=== PATIENT | female | born 1950 | race American Indian/Alaskan Native ===

== ENCOUNTER 2017-03-15 12:27 | Outpatient (CLI) | payer MEDICARE ==
[2017-03-15 13:04] LABS: Blood Urea Nitrogen 16 mg/dL (7-17)
--- NOTE | 2017-03-15 15:37 | Magnetic Resonance Report ---
MRI of the abdomen with and without contrast. History: Hepatitis C. Procedure: A multiplanar multisequence study was performed with and without contrast and compared to a previous similar study performed on June 01, 2016. Findings: The liver size is normal loss of normal to decreased, similar to the previous study. There is minimal subtle nodularity of the contour of the liver as noted before. No focal lesions are seen within the liver on the precontrast study. The spleen and pancreas are normal. The pancreatic duct is normal in caliber. The portal vein is somewhat prominent but otherwise unremarkable. Multiple gallstones are seen. The kidneys are normal in size and configuration. There is no hydronephrosis or evidence of renal mass. No abnormal fluid collections are seen. The postcontrast study demonstrates such severe motion artifact that it is essentially nondiagnostic. The previous study in 2015 was of diagnostic quality. Impression: The study is significantly limited technically due to to essentially nondiagnostic postcontrast study related to severe motion artifact. However on the precontrast study, there is no evidence of hepatic mass or other interval change. The liver remains slightly small with minimal nodularity of the contour, possibly due to cirrhosis. 2. Cholelithiasis.
== END 2017-03-15 12:28 | disposition home or self-care (01) ==
LOC: MRI 12:27
PROVIDERS: ATTEND Internal Medicine Gastroenterology
DX: K80.20 Calculus of gallbladder without cholecystitis without obstruction (principal); B19.20 Unspecified viral hepatitis C without hepatic coma; K74.60 Unspecified cirrhosis of liver; R97.8 Other abnormal tumor markers
CPT/HCPCS: 36415; 74183; 82565; 84520; A9577

== ENCOUNTER 2017-12-05 09:00 | Outpatient (CLI) | payer MEDICARE ==
[2017-12-05 10:02] LABS: Blood Urea Nitrogen 20 mg/dL (7-17)
--- NOTE | 2017-12-06 08:30 | Magnetic Resonance Report ---
MRI ABDOMEN WITHOUT AND WITH CONTRAST : 12/05/17 10:00:00 CLINICAL: Hepatitis C. COMPARISON :08/01/16 TECHNIQUE: Axial T1 in phase and opposed phase, coronal and axial T2 and axial T2 fat sat sequences plus multiphase postcontrast T1 fat sat sequences on a 1.5 Jodie magnet. 15.0 cc of Multihance was injected intravenously for the contrast portion of the exam and consent was obtained prior to the administration of the contrast. FINDINGS: Stable small liver with the right lobe measuring 13 cm in length. Stable surface nodularity of the anterior left lobe. No liver mass. Stable enlargement of the main portal vein and branch portal veins. The umbilical vein is patent and portosystemic collaterals are identified in the epigastric region. Normal hepatic veins and bile ducts. Cholelithiasis with several small calculi layering dependently within the gallbladder. No gallbladder wall thickening or pericholecystic fluid. No ascites. The spleen is mildly enlarged and measures 11.5 cm maximum dimension. This measurement is unchanged. The pancreas is small and otherwise normal. Normal splenic vein and superior mesenteric vein. No splenic varices or gastric varices are identified. Normal adrenal glands and kidneys. The renal collecting systems and ureters are nondilated. Imaged portions of small bowel and colon are normal. IMPRESSION: 1. Cirrhosis of the liver with stable liver size and nodularity. 2. Mild portal hypertension with large portal veins, patent umbilical vein and mild splenomegaly. However, no gastric or splenic varices and no ascites. 3. Cholelithiasis but no signs of acute cholecystitis.
== END 2017-12-05 09:01 | disposition home or self-care (01) ==
LOC: MRI 09:00
PROVIDERS: ATTEND Internal Medicine Gastroenterology
DX: K80.20 Calculus of gallbladder without cholecystitis without obstruction (principal); B19.20 Unspecified viral hepatitis C without hepatic coma; K74.60 Unspecified cirrhosis of liver; R97.8 Other abnormal tumor markers; R16.1 Splenomegaly, not elsewhere classified; K76.6 Portal hypertension
CPT/HCPCS: 36415; 74183; 82565; 84520; A9577

== ENCOUNTER 2017-12-17 11:39 | Emergency (ER) | payer MEDICARE ==
[2017-12-17 12:30] LABS: Basophils % (Auto) 0.3 % (0.0-1.8); Eosinophils # (Auto) 0.1 K/mm3 (0.0-0.4); Eosinophils % (Auto) 1.4 % (0.0-4.3); Hematocrit 42.7 % (30.3-42.9); Hemoglobin 14.9 gm/dl (10.1-14.3); Lymphocytes # (Auto) 1.3 K/mm3 (1.2-5.4); Lymphocytes % (Auto) 13.9 % (13.4-35.0); Mean Corpuscular HGB Conc 35 % (30-34); Mean Corpuscular Hemoglobin 30 pg (28-32); Mean Corpuscular Volume 87 fl (79-97); Monocytes # (Auto) 0.7 K/mm3 (0.0-0.8); Monocytes % (Auto) 7.5 % (0.0-7.3); Red Cell Distribution Width 15.3 % (13.2-15.2)
[2017-12-17 12:31] LABS: Platelet Count 97 K/mm3 (140-440)
[2017-12-17 12:52] LABS: Alanine Aminotransferase 15 units/L (7-56); Albumin 4.3 g/dL (3.9-5); BUN/Creatinine Ratio 13; Blood Urea Nitrogen 12 mg/dL (7-17); Calcium 9.5 mg/dL (8.4-10.2); Hemolysis Index 21
[2017-12-17 15:43] LABS: Bilirubin,Urine NEG (Negative); Blood,Urine MOD (Negative); Nitrite,Urine NEG (Negative); Protein,Urine <15 mg/dL mg/dL (Negative); Urobilinogen,Urine < 2.0 mg/dL (<2.0)
[2017-12-17 16:09] LABS: Color,Urine Straw (Yellow); RBC,Urine < 1.0 /HPF (0.0-6.0)
--- NOTE | 2017-12-17 16:59 | Emergency Department Report ---
HPI - General Chief Complaint: Abdominal Pain Time Seen by Provider: 12/17/17 16:52 - HPI HPI: c/o lower abd pain and LUTS (dysuria, frequency, urgency) that started this morning. At the ER she went to the bathroom to urinate and she urinated a little but the pain is gone. Denies nausea, vomiting, diarrhea, fever, or chills. h/o UTI but no calculi. h/o HTN and PCP just started her on a water pill. ED Past Medical Hx - Past Medical History Previous Medical History?: Yes Hx Hypertension: Yes - Surgical History Past Surgical History?: Yes Additional Surgical History: right knee surgery - Social History Smoking Status: Never Smoker Substance Use Type: Alcohol - Medications Home Medications: Home Medications Medication Instructions Recorded Confirmed Last Taken Type Epclusa 400 mg-100 mg Tablet 100 mg PO DAILY 09/19/16 09/19/16 09/18/16 History amLODIPine [Norvasc] 2.5 mg PO QDAY #30 tablet 09/20/16 Unknown Rx methylPREDNISolone [Medrol Dose 1 dose PO DAILY #1 pack 09/20/16 Unknown Rx Bernardo] Triamcinolone Acetonide 60 ml TP BID #90 mg 10/19/16 Unknown Rx [Triamcinolone 0.1% LOTION] methylPREDNISolone [Medrol] 4 mg PO QAM #21 tab.ds.pk 10/19/16 Unknown Rx Ciprofloxacin HCl [Cipro] 500 mg PO BID #20 tablet 12/17/17 Unknown Rx ED Review of Systems ROS: Stated complaint: URINE RETENTION Other details as noted in HPI Constitutional: denies: chills, fever Eyes: denies: eye pain, eye discharge, vision change ENT: denies: ear pain, throat pain Respiratory: denies: cough, shortness of breath, wheezing Cardiovascular: denies: chest pain, palpitations Endocrine: no symptoms reported Gastrointestinal: denies: abdominal pain, nausea, diarrhea Genitourinary: as per HPI, urgency, dysuria Musculoskeletal: denies: back pain, joint swelling, arthralgia Skin: denies: rash, lesions Neurological: denies: headache, weakness, paresthesias Psychiatric: denies: anxiety, depression Hematological/Lymphatic: denies: easy bleeding, easy bruising Physical Exam - Physical Exam Vital Signs: Vital Signs 12/17/17 11:42 Temperature 97.8 F Pulse Rate 87 Respiratory 18 Rate Blood Pressure 160/68 O2 Sat by Pulse 96 Oximetry Physical Exam: General: no acute distress. Abdominal: flat, nontender, nondistended, normal BS Chest: good air entry B/L Heart: normal S1/S2, no murmer ED Course Vital Signs 12/17/17 11:42 Temperature 97.8 F Pulse Rate 87 Respiratory 18 Rate Blood Pressure 160/68 O2 Sat by Pulse 96 Oximetry - Reevaluation(s) Reevaluation #1: 12/17/17 17:43 Went to the bathroom and urinated but dysuria. No abdominal pain. gave her 40 meq KCL PO once. ED Medical Decision Making - Lab Data Result diagrams: 12/17/17 12:15 12/17/17 12:15 Critical care attestation.: If time is entered above; I have spent that time in minutes in the direct care of this critically ill patient, excluding procedure time. ED Disposition Clinical Impression: Hypokalemia UTI (urinary tract infection) Qualifiers: Urinary tract infection type: site unspecified Hematuria presence: without hematuria Qualified Code(s): N39.0 - Urinary tract infection, site not specified Disposition: DC-01 TO HOME OR SELFCARE Is pt being admited?: No Does the pt Need Aspirin: No Condition: Good Instructions: Abdominal Pain (ED) Additional Instructions: UTI Prescriptions: Ciprofloxacin HCl [Cipro] 500 mg PO BID #20 tablet Referrals: ALEXANDREA LECHUGA MD [Primary Care Provider] - 3-5 Days Time of Disposition: 17:45
[2017-12-17] MEDS ORDERED: K-DUR PO ONE (17:21)
[2017-12-17 17:54] VITALS: BP 166/74
== END 2017-12-17 17:58 | disposition home or self-care (01) ==
LOC: ED 11:39
DX: N39.0 Urinary tract infection, site not specified (principal); E87.6 Hypokalemia; I10 Essential (primary) hypertension
CPT/HCPCS: 36415; 80053; 81001; 85025; 99283

== ENCOUNTER 2018-01-27 19:24 | Emergency (ER) | payer MEDICARE ==
[2018-01-27] MEDS ORDERED: ASPIRIN PO ONE (19:48)
[2018-01-27 20:27] LABS: Basophils % (Auto) 0.4 % (0.0-1.8); Eosinophils # (Auto) 0.1 K/mm3 (0.0-0.4); Eosinophils % (Auto) 0.9 % (0.0-4.3); Hematocrit 42.2 % (30.3-42.9); Hemoglobin 14.7 gm/dl (10.1-14.3); Lymphocytes # (Auto) 1.5 K/mm3 (1.2-5.4); Lymphocytes % (Auto) 18.5 % (13.4-35.0); Mean Corpuscular HGB Conc 35 % (30-34); Mean Corpuscular Hemoglobin 31 pg (28-32); Mean Corpuscular Volume 89 fl (79-97); Monocytes # (Auto) 0.5 K/mm3 (0.0-0.8); Monocytes % (Auto) 6.4 % (0.0-7.3); Red Blood Count 4.76 M/mm3 (3.65-5.03); Red Cell Distribution Width 14.2 % (13.2-15.2)
--- NOTE | 2018-01-27 20:30 | Cat Scan Report ---
FINAL REPORT EXAM: CT HEAD/BRAIN WO CON HISTORY: headache TECHNIQUE: Axial noncontrast CT images of the brain were performed. Total exam DLP 805.42 mGy-cm Comparison: None FINDINGS: There is mild cortical atrophy. There is normal king-white differentiation without midline shift or mass effect. There is left basal ganglia punctate calcification. There are no intraparenchymal blood products or acute extra-axial fluid collections. Ventricles and cisterns have normal size and configuration. Orbital cones and apices are within normal limits. 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 Sphenoid sinus mucous retention cyst. IMPRESSION: No acute intracranial abnormality identified. Specifically, no transcortical infarct, mass, or blood products. If symptoms persist, recommend MRI brain with diffusion-weighted imaging. Sphenoid sinus mucous retention cyst. 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
[2018-01-27 20:36] LABS: Platelet Count 86 K/mm3 (140-440)
[2018-01-27 20:48] LABS: BUN/Creatinine Ratio 14; Blood Urea Nitrogen 15 mg/dL (7-17); Calcium 9.1 mg/dL (8.4-10.2); Hemolysis Index 9
[2018-01-28 05:01] VITALS: BP 170/78
== END 2018-01-28 06:11 | disposition left against medical advice (07) ==
LOC: ED 19:24
DX: R07.9 Chest pain, unspecified (principal); R42 Dizziness and giddiness; R51 Headache; Z53.21 Procedure and treatment not carried out due to patient leaving prior to being seen by health care provider
CPT/HCPCS: 36415; 70450; 80048; 84484; 85025; 93005; 93010

== ENCOUNTER 2020-10-19 09:30 | Outpatient (CLI) | payer MEDICARE ==
--- NOTE | 2020-10-19 11:29 | Magnetic Resonance Report ---
MR brain wo con INDICATION / CLINICAL INFORMATION: 70 years Female; H81.09 R42 H83.2XP. TECHNIQUE: Multiplanar, multisequence MR images of the brain were obtained. COMPARISON: None available. FINDINGS: BRAIN / INTRACRANIAL CONTENTS: This mild cerebral atrophy. The ventricular system is correspondingly appropriate in size and configuration. No extra-axial fluid collections or significant mass effect is identified. There are subtle periventricular white matter changes indicative of mild age-appropriate microvascular angiopathy. The diffusion imaging reveals no evidence of acute infarction. CRANIOCERVICAL JUNCTION: No significant abnormality. 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 Otherwise, the vascular structures grossly demonstrate appropriate signal voids. ORBITS: No significant abnormality. SINUSES / MASTOIDS: There is a 1.5 cm retention cyst along the posterior right sphenoid sinus with sl ight adjacent mucosal thickening. ADDITIONAL FINDINGS: None. IMPRESSION: 1. The MRI of the brain is unremarkable for age without evidence of recent infarction or acute intrac ranial process. 2. There is a 1.2 cm retention cyst along the posterior right sphenoid sinus. Signer Name: Paresh Darling MD Signed: 10/19/2020 11:25 AM Workstation Name: [id number]
== END 2020-10-19 09:31 | disposition home or self-care (01) ==
LOC: MRI 09:30
PROVIDERS: ATTEND Otolaryngology
DX: J34.1 Cyst and mucocele of nose and nasal sinus (principal); G31.9 Degenerative disease of nervous system, unspecified; I67.9 Cerebrovascular disease, unspecified; H90.3 Sensorineural hearing loss, bilateral; H81.09 Meniere's disease, unspecified ear
CPT/HCPCS: 70551

== ENCOUNTER 2021-12-06 14:41 | Outpatient (CLI) | payer MEDICARE ==
--- NOTE | 2021-12-06 16:29 | XRay Report ---
Left shoulder 3 views INDICATION: Shoulder pain FINDINGS: There is an enthesophyte with degenerative change of the acromion with impingement superior ly. Glenohumeral joint appears intact. Degenerative changes along the greater tuberosity. No displace d fracture. Signer Name: Joesph Sanches MD Signed: 12/06/2021 4:24 PM Workstation Name: [id number]
== END 2021-12-06 14:42 | disposition home or self-care (01) ==
LOC: XRAY 14:41
PROVIDERS: ATTEND Orthopaedic Surgery
DX: M19.012 Primary osteoarthritis, left shoulder (principal); M25.712 Osteophyte, left shoulder